=== PATIENT | male | born 2005 | race Caucasian/White ===

== ENCOUNTER 2024-08-23 20:55 | Outpatient (CLI) | payer BC, SELFPAY | END 2024-08-23 20:56 | disposition home or self-care (01) | LOC: SLEEP 21:00 | PROVIDERS: Visit Provider Internal Medicine | DX: G47.33 Obstructive sleep apnea (adult) (pediatric) (principal); G47.10 Hypersomnia, unspecified | CPT/HCPCS: 95810 ==